=== PATIENT | female | born 1975 | race Caucasian/White ===

== ENCOUNTER 2023-08-05 11:11 | Emergency (ER) | payer OTHER ==
[2023-08-05 11:48] VITALS: BP 147/63; PULSE 52; RESP 16; TEMP 98.4; BMI 25.4
[2023-08-05] MEDS ORDERED: diphenhydrAMINE HCL 25 MG CAPSULE (FP) PO ONE (12:47)
[2023-08-05] MEDS ORDERED: ACETAMINOPHEN 500 MG TABLET (FP) ONE (12:47)
[2023-08-05] MEDS: diphenhydrAMINE HCL 25 MG CAPSULE (FP) PO ONE (12:49)
[2023-08-05] MEDS: ACETAMINOPHEN 500 MG TABLET (FP) PO ONE (12:49)
== END 2023-08-05 13:25 | disposition home or self-care (01) ==
LOC: JERFT 11:11
DX: R21 Rash and other nonspecific skin eruption (principal); L29.9 Pruritus, unspecified; L25.9 Unspecified contact dermatitis, unspecified cause
CPT/HCPCS: 99283-25